=== PATIENT | male | born 1955 | race Hispanic/Latino ===

== ENCOUNTER 2018-01-01 13:43 | Emergency (ER) | payer MEDICAID ==
[2018-01-01 13:58] VITALS: BMI 28.7
[2018-01-01 14:02] VITALS: RESP 18; TEMP 98.2; O2SAT 96
--- NOTE | 2018-01-01 14:19 | ED PDOC ---
Arrival/HPI - General Chief Complaint: GI Problem Time Seen by Provider: 01/01/18 14:16 Historian: Patient - History of Present Illness Narrative History of Present Illness (Text): 01/01/18 14:19 Lavinia Oneal, 62 yo male with pmh bph, chronic constipation, hereditary spastic paraplegia, presents to to this Emergency department complaining of constipation for 4-5 days. Patient admits similar symptoms in the past. Patient stated he saw his PMD 20 days ago, and he was given medication to prevent constipation, but he said it is not working. Patient denies nausea, vomiting, abdominal pain, rectal bleeding, sob, cp, or urinary symptoms. Time/Duration: Other (see hpi) Context: Home Past Medical History - Provider Review Nursing Documentation Reviewed: Yes - Cardiac Hx Pacemaker: No - Pulmonary Hx Respiratory Disorders: No - Neurological Hx Paralysis: Yes - HEENT Hx HEENT Disorder: No - Renal Hx Renal Disorder: No - Endocrine/Metabolic Hx Endocrine Disorders: No - Hematological/Oncological Hx Blood Transfusions: No - Integumentary Hx Dermatological Disorder: No - Musculoskeletal/Rheumatological Hx Musculoskeletal Disorders: Yes (HEREDITARY SPASTIC PARAPLEGIA) - Gastrointestinal Hx Gastrointestinal Disorders: No - Genitourinary/Gynecological Hx Genitourinary Disorders: No - Psychiatric Hx Emotional Abuse: No Hx Physical Abuse: No Hx Substance Use: No - Anesthesia Hx Anesthesia Reactions: No Hx Malignant Hyperthermia: No - Suicidal Assessment Feels Threatened In Home Enviroment: No Family/Social History - Physician Review Nursing Documentation Reviewed: Yes Family/Social History: Other (noncontributory) Smoking Status: Never Smoked Hx Alcohol Use: Yes (SOCIALLY) Hx Substance Use: No Allergies/Home Meds Allergies/Adverse Reactions: Allergies No Known Allergies Allergy (Verified 01/01/18 13:58) Home Medications: Home Meds Medication Instructions Recorded Confirmed Gabapentin [Neurontin] 100 mg PO TID PRN 09/06/15 01/01/18 Baclofen [Lioresal] 40 mg PO DAILY 01/01/18 01/01/18 Clonazepam [Klonopin] 0.5 mg PO BID 01/01/18 01/01/18 Naproxen [Naprosyn] 500 mg PO BID 01/01/18 01/01/18 Pramipexole [Mirapex] 0.25 mg PO BID 01/01/18 01/01/18 Rosuvastatin Calcium [Crestor] 20 mg PO DAILY 01/01/18 01/01/18 Tolterodine Tartrate [Tolterodine 4 mg PO DAILY 01/01/18 01/01/18 Tartrate ER] Review of Systems - Review of Systems Constitutional: Normal. absent: Fatigue, Weight Change, Fevers, Night Sweats Eyes: Normal ENT: Normal Respiratory: Normal. absent: SOB, Cough, Sputum, Wheezing Cardiovascular: Normal. absent: Chest Pain, Palpitations Gastrointestinal: Constipation. absent: Abdominal Pain, Nausea, Vomiting Genitourinary Male: Normal. absent: Dysuria, Frequency, Hematuria Musculoskeletal: Normal Skin: Normal Neurological: Normal. absent: Headache, Dizziness Endocrine: Normal Hemo/Lymphatic: Normal Psychiatric: Normal Physical Exam Vital Signs Temp Pulse Resp BP Pulse Ox 01/01/18 16:00 79 18 152/91 H 96 01/01/18 14:01 98.2 F 88 18 157/101 H 96 Temperature: Afebrile Blood Pressure: Normal Pulse: Regular Respiratory Rate: Normal Appearance: Positive for: Well-Appearing, Non-Toxic, Comfortable Pain Distress: None Mental Status: Positive for: Alert and Oriented X 3 - Systems Exam Head: Present: Atraumatic, Normocephalic Pupils: Present: PERRL Extroacular Muscles: Present: EOMI Conjunctiva: Present: Normal Mouth: Present: Moist Mucous Membranes Neck: Present: Normal Range of Motion Respiratory/Chest: Present: Clear to Auscultation, Good Air Exchange. No: Respiratory Distress, Accessory Muscle Use Cardiovascular: Present: Regular Rate and Rhythm, Normal S1, S2. No: Murmurs Abdomen: Present: Normal Bowel Sounds. No: Tenderness, Distention, Peritoneal Signs, Rebound, Guarding Back: Present: Normal Inspection Upper Extremity: Present: Normal Inspection, Normal ROM. No: Cyanosis, Edema Lower Extremity: Present: Normal Inspection, Other (ROM is baseline as per patient). No: Edema Neurological: Present: GCS=15, CN II-XII Intact, Speech Normal Skin: Present: Warm, Dry, Normal Color. No: Rashes Psychiatric: Present: Alert, Oriented x 3, Normal Insight, Normal Concentration Medical Decision Making ED Course and Treatment: 01/01/18 16:44 Re-evaluation. Patient feels better. Discussed results and plan with patient who expresses understanding. All questions answered and there is agreement with the plan to discharge home with instructions. Patient stable for discharge. Return if symptoms persist or worsen. Patient was recommended to drink enough fluids, and to follow up pmd in 1-2 days Re-evaluation Time: 16:45 Reassessment Condition: Re-examined, Improved - RAD Interpretation Narrative RAD Interpretations (Text): 01/01/18 16:45 2 views abdomen x-rays: No free air. (+) moderate constipation Radiology Orders: 01/01/18 14:17 ABD 2 VIEWS (FLAT/UP OR DECUB) [RAD] Stat Disposition/Present on Arrival - Present on Arrival Any Indicators Present on Arrival: No History of DVT/PE: No History of Uncontrolled Diabetes: No Urinary Catheter: No History of Decub. Ulcer: No History Surgical Site Infection Following: None - Disposition Have Diagnosis and Disposition been Completed?: Yes Diagnosis: Constipation Disposition: HOME/ ROUTINE Disposition Time: 16:47 Patient Plan: Discharge Condition: GOOD Discharge Instructions (ExitCare): Constipation in Adults Additional Instructions: Call private doctor for follow up visit in 1-2 days. Take medication as instructed. Return to emergency if symptoms worsen. Drink enough water while using Enema o Magnesium citrate. Stay home while using these medication because you will have multiple bowel movement. Calls cafeteria or lunchroom checker for constipation Prescriptions: Mineral Oil [Fleet Mineral Oil Enema 135 Ml] 1 bottle RC PRN PRN #5 bottle PRN Reason: Constipation Referrals: Soheila Anderson NP [Primary Care Provider] - Follow up with primary Rashad Beach MD [Staff Provider] - Follow up with primary Forms: Kohort (Greek)
[2018-01-01 16:12] VITALS: BP 152/91; PULSE 79
[2018-01-01] MEDS ORDERED: Magnesium Citrate Oral SOL (300 ml) PO ONE (16:46)
--- NOTE | 2018-01-01 17:07 | RAD ---
HISTORY: feels constipated COMPARISON: No prior. FINDINGS: BOWEL: BONES: Degenerative changes both hips left greater than right. OTHER FINDINGS: Scoliosis, secondary degenerative change at multiple levels. IMPRESSION: No acute findings related to/accounting for the clinical presentation. Additional benign and/or incidental findings described above.
== END 2018-01-01 17:09 | disposition home or self-care (01) ==
LOC: ED 13:43
DX: K59.00 Constipation, unspecified (principal)

== ENCOUNTER 2018-05-10 12:48 | Day surgery (SDC) | payer MEDICAID ==
[2018-05-10 14:05] VITALS: TEMP 97.9; BMI 28.7
[2018-05-10] MEDS ORDERED: Bupivacaine 0.5% Inj(30mL) ONE (15:34)
[2018-05-10] MEDS ORDERED: Lidocaine 1% Inj (20ml) ONE (15:44)
[2018-05-10] MEDS ORDERED: Bupivacaine 0.5% Inj(30mL) IJ ONE (15:55)
[2018-05-10] MEDS ORDERED: Bacitracin Ointment 30 GM TUBE ONE (15:59)
[2018-05-10] MEDS ORDERED: Lidocaine 1% Inj (20ml) IJ ONE (15:59)
[2018-05-10 16:37] VITALS: BP 152/80; PULSE 88; RESP 18; O2SAT 98
--- NOTE | 2018-05-31 03:48 | PN ---
Copied To: Hal Arechiga MD Attending MD: Hal Arechiga MD DATE: 05/31/2018 INTERMEDIATE POSTOP NOTE See history and physical and operative note. Patient is now status post circumcision. He is in the recovery room, stable condition. Vital signs within normal limits. UNDERLYING DIAGNOSES: Phimosis, voiding dysfunction, redundant foreskin, decrease force of stream. The patient is immediately postop from the circumcision and vital signs are within normal limits. Exam otherwise looks normal, within normal limits. UROLOGY DIAGNOSES AND PLAN: Phimosis, redundant foreskin, and voiding dysfunction. PLAN: Discharge home when patient is stable. He will come back to the office for follow up visit. I emphasized to the patient pre and postop the importance of follow up to monitor him, particularly my concern was that this procedure can be done, we can make the circumcision done well, but in terms of improvement in voiding dysfunction, this needs to be elucidated. If this does not help, other things. I explained this in detail and will request the patient to come in for follow up visit. Hal Arechiga MD (Delete this signature block when dictator is a preceptor.)
--- NOTE | 2018-05-31 11:54 | HP ---
Copied To: Hal Arechiga MD Attending MD: Hal Arechiga MD REASON FOR ADMISSION: Preparation for the circumcision. HISTORY OF PRESENT ILLNESS: A very pleasant gentleman. He came in insisting on a circumcision. He has redundant foreskin and a little bit of a tight phimosis and what he reports is this is causing trouble. We did discuss the possibility that his circumcision will be of benefit, but we also discussed of possibility that it will not be of so much benefit today. We have to rule out neurogenic bladder. We did do a cystoscopy. See the notes from the office where we confirmed that there is no urethral stricture disease. The verumontanum is moderately visually occlusive. Moderately trabeculated bladder. No bladder tumors, lesions, stones, etc. So after discussing options, he is here now for the above procedure. I explained to the patient the hope is that this will improve things for him. But, this is a difficult challenge. The past medical and surgical is otherwise listed. He has a condition that he is one of handful of the patients that he describes are from his country. They have this similar problem. 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 We discussed the implications. We discussed he has waited for third to fourth opinions, etc. but for now he is interested at this circumcision. This is a new request. We will discuss this with the anesthesiologist. From the Urology standpoint, we cannot provide local and see how the patient does. At the patient's daughter's request, the patient will not get anesthesia today. The past medical and surgical are listed again as mentioned in the . SOCIAL HISTORY: otherwise unremarkable. No history of drug abuse. No history of an RI. REVIEW OF SYSTEMS: No weight loss, chest pain, shortness of breath. Essentially negative. DIAGNOSES: Phimosis, redundant foreskin, decreased force of stream, nocturia, urgency, some voiding dysfunction. ASSESSMENT AND PLAN: In summary, a very pleasant gentleman. We discussed options. He is here today. We are going to perform a cystoscopy. We hope that this will be of benefit and help his urinary symptoms. We have also discussed other possibilities for now. We discussed further treatments that are available. We discussed intermittent catheterization. We discussed indwelling Lopez versus cystostomy tube. We discussed many, many options. We have also discussed what we are bringing him in for. Today's plan as follows. We are going to plan for a circumcision. We will see how the patient does clinically. I emphasized to the patient the need for eventual followup, see how he does clinically, make sure he heals well and once that heals well, see if it has improved his voiding complaints and his voiding dysfunction. Then, further plans will follow. So, the plans are as follows: 1. Antibiotic prophylaxis. 2. Circumcision and then further plans to follow. I emphasized to the patient the importance of followup in our office in terms of availability of other medications that are available, other possibilities for change of plan. For today, the plan is as follows: 1. Antibiotics. 2. Circumcision. Hal Arechiga MD
--- NOTE | 2018-05-31 16:02 | OP ---
Copied To: Hal Arechiga MD Attending MD: Hal Arechiga MD PROCEDURE DATE: 05/10/2018 PREOPERATIVE DIAGNOSES: Redundant foreskin, phimosis, voiding dysfunction and possible neurogenic bladder. POSTOPERATIVE DIAGNOSES: Redundant foreskin, phimosis, voiding dysfunction and possible neurogenic bladder. The main concern is the phimosis and the redundant foreskin. PROCEDURE: Circumcision. SURGEON: Hal Arechiga MD BLOOD LOSS: Less than 10 mL. COMPLICATIONS: There were no complications. DRAINS: None. Procedure in fact proceeded very well and with the final product looking very good cosmetically and looks like he will be able to void better. INDICATIONS: See the history and physical for the details, see the office notes as well. A very pleasant gentleman came in insisting that he wants the circumcision. His complaint is that he cannot void well. He has tremendous difficulty; again, see the history and physical for further details; mostly, secondary that he reports at foreskin, we did do a cystoscopic evaluation to confirm that there were no urethral strictures and urethral abnormalities. He has a relatively normal enlarging prostate, moderately visually occlusive, not completely occlusive. Within his urinary bladder, we did not see any stones, we did not see any major abnormalities. We did do a biopsy. After discussing the options with the patient, he is here today for circumcision. I explained to the patient that we can perform the circumcision and it should help him some extent, but I am not positive it is going to relieve all his troubles. Because ultimately with gentle exertion, able to retract the foreskin. Perhaps, the patient is not able to do that on his own and so this procedure should hopefully benefit him, but I did explain to him he may still have trouble because he has other issues. See the history and physical for the details, the underlying medical and muscle issues and neurologic issues. He states he is one of just a handful of people in his country with this condition. He has come here seeking at other treatments, but from the own standpoint, he is here for circumcision. DESCRIPTION OF PROCEDURE: After obtaining informed consent, the patient was placed on the table. Routine monitors were placed. Timeout was called to confirm the patient and positioning. In this case, the patient's daughter insisted that he does not have the circumcision with anesthesia; so, we did as best as we could with just local. This definitely added a component of an unexpected plan, but we discussed options and the patient would like to comply with his daughter's request and so, we did our best. For the procedure, I want the patient totally awake. Timeout was called to confirm the patient's positioning. The patient is supine. We provided local Marcaine. We mapped his anatomy with a marking pen. I had explained to the patient exactly what we are doing. We were able to discuss it while we were doing the procedure. Once we mapped the foreskin, we removed the foreskin in a sleeve technique. We removed it with a very nice symmetrical incision. Once we did this, we controlled the hemostasis. Again, the patient is reasonably comfortable with the anesthesia. We then checked the vital signs. we kept monitoring the patient closely. We had removed the foreskin well. We packed his granular surface with a U-stitch. We achieved hemostasis with some cautery. We reapproximated 12 to 3, 3 to 6, 6 to 9 and 9 to 12. Using 3-0 and 4-0 chromic on a on the ventral surface, we used the U-stitch around it. Overall, the patient tolerated well. We wrapped the penis with a dry sterile dressing. He was brought to the Recovery Room in stable condition, having tolerated the procedure well. Hal Arechiga MD
== END 2018-05-10 17:20 | disposition home or self-care (01) ==
LOC: OPSURG 12:48 → SDS 12:48 → OPSURG 17:20
PROVIDERS: ATTEND Urology
DX: N47.1 Phimosis (principal)